=== PATIENT | female | born 1960 | race Caucasian/White ===

== ENCOUNTER 2022-03-05 11:49 | Inpatient (IN) ==
[2022-03-05] MEDS ORDERED: SODIUM CHLORIDE 0.9% 1000ML 1,000 ML IV STA (12:06)
[2022-03-05 12:21] LABS: Hematocrit (blood only) 48.4 % (34.1-44.9); Hemoglobin 16.3 g/dl (12.0-16.0); Mean Corpuscular Hemoglobin 29.8 pg (25.0-34.0); Mean Corpuscular Hgb Conc 33.7 g/dL (32.0-36.0); Mean Corpuscular Volume 88.5 fL (80.0-100.0); Mean Platelet Volume 11.9 fL (9.4-12.3); Platelet Count 141 K/uL (130-400); RDW Coefficient of Variation 14.3 % (11.5-14.5); RDW Standard Deviation 46.1 fL (36.4-46.3); Red Blood Count 5.47 M/uL (3.93-5.22); White Blood Count 8.48 K/ul (4.8-10.8)
[2022-03-05 12:44] LABS: Alanine Aminotransferase 43 U/L (7-52); Albumin Globulin Ratio 0.9 (0.9-2); Albumin Level 3.4 gm/dl (3.4-5.0); Alkaline Phosphatase 81 U/L (34-104); Anion Gap 10 (3-11); Aspartate Aminotransferase 38 U/L (13-39); BUN Creatinine Ratio 16.2 (10-20); Bilirubin,Total 0.6 mg/dl (0.2-1.0); Blood Urea Nitrogen 16 mg/dl (6-23); Calcium 8.6 mg/dl (8.5-10.1); Carbon Dioxide 26 mmol/L (21-32); Chloride 97 mmol/L (98-107); Est GFR (African American) 71.8 ml/min; Est GFR (Non-African American) 61.9 ml/min; Globulin 3.8 gm/dl (2.5-4.0); Glucose 120 mg/dl (70-99(Fasting)); Potassium 3.6 mmol/L (3.5-5.1); Sodium 133 mmol/L (136-145); Total Protein 7.2 gm/dl (6.0-8.3)
[2022-03-05 12:49] LABS: Troponin I High Sensitivity 17.6 pg/ml (0-14)
--- NOTE | 2022-03-05 12:54 | XRay Report ---
XR chest 1V portable CLINICAL HISTORY: Dysrhythmia. COMPARISON STUDY: No previous studies for comparison. TECHNIQUE: 1 view of the chest FINDINGS: Single frontal view of the chest demonstrates the cardiomediastinal silhouette to be within normal li mits. There is a decreased inspiratory effort with elevation of the hemidiaphragms and crowding of th e bronchovascular markings at the lung bases and centrally. Patchy alveolar density is also present a t the right cardiophrenic angle presence of an early infiltrate cannot be excluded on this limited st udy. Follow-up PA and lateral radiographs are recommended. There is blunting of left costophrenic angle in the presence of a small pleural effusion cannot be ex cluded. There is no evidence for vascular congestion. There is no acute osseous pathology. IMPRESSION: 1. Decreased inspiration with suspicion of an infiltrate at the right cardiophrenic angle. Follow-up PA and lateral radiographs are recommended to exclude the presence of pneumonia. 2. This also suspicion of small left pleural effusion. ACT 112: Negative or not required by law. Electronically signed by: Benny Clay M.D. 03/05/2022 12:53 PM
[2022-03-05 12:57] LABS: Thyroid Stimulating Hormone 4.971 uIu/ml (0.300-4.500)
[2022-03-05 13:16] LABS: Basophils # (auto) 0.08 K/uL (0-0.2); Basophils % (auto) 0.9 %; Eosinophils # (auto) 0.01 K/uL (0-0.50); Eosinophils % (auto) 0.1 %; Immature Granulocytes # (auto) 0.04 K/uL (0.00-0.02); Immature Granulocytes % (auto) 0.5 %; Lymphocytes # (auto) 3.14 K/uL (1.2-3.4); Monocytes # (auto) 0.57 K/uL (0.24-0.82); Monocytes % (auto) 6.7 %; Neutrophils # (auto) 4.64 K/uL (1.4-6.5); Neutrophils % (auto) 54.8 %; Polychromasia 1+
[2022-03-05 13:26] LABS: Lyme Ab IgG w/WB Rflx Negative (Negative)
[2022-03-05 13:30] LABS: Lyme Ab IgM w/WB Rflx Positive (Negative)
[2022-03-05 13:31] LABS: T4 Free Thyroxine 1.25 ng/dl (0.61-1.60)
[2022-03-05] MEDS ORDERED: DOXYCYCLINE HYCLATE 100 MG in DEXTROSE 5% 100 ML IV STA (13:31)
[2022-03-05] MEDS ORDERED: cefTRIAXone SODIUM 2,000 MG/70 ML BAG IV STA (13:31)
[2022-03-05 13:48] LABS: Adenovirus PCR Not Detected (NotDetected); Bordetella parapertussis PCR Not Detected (NotDetected); Bordetella pertussis PCR Not Detected (NotDetected); Chlamydia pneumoniae PCR Not Detected (NotDetected); Coronavirus 229E PCR Not Detected (NotDetected); Coronavirus CoV-2 (COVID19)PCR Not Detected (NotDetected); Coronavirus HKU1 PCR Not Detected (NotDetected); Coronavirus NL63 PCR Not Detected (NotDetected); Coronavirus OC43PCR Not Detected (NotDetected); Human Metapneumovirus PCR Not Detected (NotDetected); Influenza A PCR Not Detected (NotDetected); Influenza B PCR Not Detected (NotDetected); Mycoplasma pneumoniae PCR Not Detected (NotDetected); Parainfluenza Virus 1 PCR Not Detected (NotDetected); Parainfluenza Virus 2 PCR Not Detected (NotDetected); Parainfluenza Virus 3 PCR Not Detected (NotDetected); Parainfluenza Virus 4 PCR Not Detected (NotDetected); Respiratory Syncytial VirusPCR Not Detected (NotDetected); Rhinovirus/Enterovirus PCR Not Detected (NotDetected)
--- NOTE | 2022-03-05 13:57 | Electrocardiogram Report ---
Test Reason : Blood Pressure : / mmHG Vent. Rate : 102 BPM Atrial Rate : 102 BPM P-R Int : 134 ms QRS Dur : 076 ms QT Int : 342 ms P-R-T Axes : 029 -02 039 degrees QTc Int : 445 ms Sinus tachycardia with Premature atrial complexes Possible Left atrial enlargement Inferior infarct , age undetermined Poor R wave progression, consider anterior AR vs. lead placement vs. LVH Abnormal ECG No previous ECGs available Confirmed by Baldo Bloom ([id number]) on 03/05/2022 1:57:06 PM Referred By: REFERRED SELF Confirmed By:Baldo Bloom
[2022-03-05] MEDS ORDERED: SODIUM CHLORIDE 0.9% 1000ML 1,000 ML IV SCH (15:00)
--- NOTE | 2022-03-05 15:00 | History & Physical Report ---
Date of Service March 05, 2022 Assessment & Plan (1) Sepsis: (2) Acute hypotension: (3) Acute Lyme disease: (4) PNA (pneumonia): Plan: This is a 61-year-old female with PMH of hypertension, hyperlipidemia, GERD and other medical problems listed below who presents with palpitations. Patient has been feeling poorly for the past 4 days. Symptoms started evening when she felt faint and sweaty. By Sunday, she slept much of the day with a T-max of 104 F. Yesterday, she noticed some palpitations and dry cough. Today, patient felt weak upon waking and had to lie down before she use the bathroom. Riley that her heart was "beating out of her chest" and was brought by to ED for further evaluation. In triage, patient was found to be hypotensive at 70/40 and tachycardic in the 170s. Monitoring at that time look like narrow complex tachycardia that was irregular. By the time EKG was performed, rhythm converted to sinus tachycardia at 106 bpm with PACs. Was improved with IV fluids. Upon evaluation in situ, patient feels better with IV fluids but still weak with intermittent dry cough. Denies any chills, congestion, chest pain. Palpitations have resolved. No nausea, vomiting or abdominal pain. No appetite change. No dysuria, diarrhea or constipation. Denies any known tick bites or rash but does have dogs who sleep in her bed. (5) Tachycardia: (6) Elevated troponin: (7) Hypertension: (8) Hyperlipidemia: Plan: Continue statin DVT Ppx: SQ heparin Code status: FULL PCP: Dispo: Plan to return home once medically stable/ SW consulted to help with discharge placement... Patient seen in collaboration with . Please see addendum. History of Present Illness Chief Complaint: Weakness, malaise Primary Care Provider: Jessica Abdullahi DO This is a 61-year-old female with PMH of hypertension, hyperlipidemia, GERD and other medical problems listed below who presents with palpitations. Patient has been feeling poorly for the past 4 days. Symptoms started evening when she felt faint and sweaty. By Sunday, she slept much of the day with a T-max of 104 F. Yesterday, she noticed some palpitations and dry cough. Today, patient felt weak upon waking and had to lie down before she use the bathroom. Riley that her heart was "beating out of her chest" and was brought by to ED for further evaluation. In triage, patient was found to be hypotensive at 70/40 and tachycardic in the 170s. Monitoring at that time look like narrow complex tachycardia that was irregular. By the time EKG was performed, rhythm converted to sinus tachycardia at 106 bpm with PACs. Was improved with IV fluids. Upon evaluation in situ, patient feels better with IV fluids but still weak with intermittent dry cough. Denies any chills, congestion, chest pain. Palpitations have resolved. No nausea, vomiting or abdominal pain. No appetite change. No dysuria, diarrhea or constipation. Denies any known tick bites or rash but does have dogs who sleep in her bed. Allergies Allergy/AdvReac Type Severity Reaction Status Date / Time Penicillins Allergy Intermediate Hives Verified 03/05/22 16:55 Home Medications Medication Instructions Recorded Confirmed Type atorvastatin 20 mg tablet 20 mg PO DAILY 03/05/22 03/05/22 History hydrochlorothiazide 12.5 mg capsule 12.5 mg PO DAILY 03/05/22 03/05/22 History losartan 25 mg tablet 25 mg PO DAILY 03/05/22 03/05/22 History multivitamin 1 tab PO DAILY 03/05/22 03/05/22 History Past Med/Surg History Medical History (Updated 03/05/22 @ 17:49 by Shana Trevino PA-C) Hyperlipidemia Hypertension Surgical History (Updated 03/05/22 @ 15:33 by Shana Trevino PA-C) Amputation of toe Family History (Updated 03/05/22 @ 15:33 by Shana Trevino PA-C) Other Diabetes Heart disease Hypertension Social History Smoking Status: Never smoker Preferred Language: Lao marital status: current occupational status: employed Feels Safe at Home: Yes Review of Systems Review of Systems: At least ten systems reviewed and negative except as noted in the HPI. Physical Exam Physical Exam: General Appearance: WD/WN, vitals as above, NAD, sitting up in bed, pleasant, conversing easily Head: normocephalic, atraumatic Eyes: normal inspection, PERRL, conjunctivae normal, anicteric sclerae ENT: external ear and nose normal, oropharynx normal Neck: normal visual inspection, trachea midline, no thyromegaly Respiratory: decreased breath sounds bilaterally. No wheeze, rales, rhonchi. No accessory muscle use Cardiovascular: tachycardic rate, regular rhythm, no murmur, normal peripheral pulses, no BLE edema. Vessels: no JVD Chest: normal inspection of chest Abdomen/GI: normal bowel sounds, soft, nontender, no hepatosplenomegaly Extremities/Musculoskeletal: no cyanosis or clubbing, extremities motor strength 5/5 Neurologic: PERRL, EOMI, accommodation nl, no face palsy, no dysarthria, CN's II-XI intact bilaterally and moves all extremities Psychiatric: A+Ox3, euthymic affect Skin: no rashes, normal color, warm/dry Results & Data Results & Data ([facility]) Vital Signs (Past 12 Hours) Vital Signs Temp Pulse Pulse Resp BP BP Pulse Ox 03/05/22 14:27 94 H 20 114/69 92 03/05/22 12:30 111 H 25 H 101/74 98 03/05/22 12:19 107 H 17 112/71 95 03/05/22 12:18 96 H 28 H 108/72 95 03/05/22 12:10 123 H 19 93 03/05/22 12:08 105 H 24 96 03/05/22 12:15 98 03/05/22 12:00 70/50 L 03/05/22 11:55 35.9 C L 97 H 16 45/28 L 93 O2 Del Method 03/05/22 14:27 Room Air 03/05/22 12:30 Room Air 03/05/22 12:19 Room Air 03/05/22 12:18 Room Air 03/05/22 12:10 Room Air 03/05/22 12:08 Room Air 03/05/22 12:15 Room Air 03/05/22 12:00 03/05/22 11:55 Room Air Laboratory Results Short CBC 03/05/22 Range/Units 12:10 WBC 8.48 (4.8-10.8) K/ul Hgb 16.3 H (12.0-16.0) g/dl Hct 48.4 H (34.1-44.9) % Plt Count 141 (130-400) K/uL BMP 03/05/22 12:10 Sodium 133 L Potassium 3.6 Chloride 97 L Carbon Dioxide 26 BUN 16 Creatinine 0.99 Glucose 120 H Calcium 8.6 Liver Function 03/05/22 Range/Units 12:10 Total Bilirubin 0.6 (0.2-1.0) mg/dl AST 38 (13-39) U/L ALT 43 (7-52) U/L Alkaline Phosphatase 81 (34-104) U/L Albumin 3.4 (3.4-5.0) gm/dl Diagnostic Findings Chest X-Ray 03/05/22 12:06 XR chest 1V portable CLINICAL HISTORY: Dysrhythmia. COMPARISON STUDY: No previous studies for comparison. TECHNIQUE: 1 view of the chest FINDINGS: Single frontal view of the chest demonstrates the cardiomediastinal silhouette to be within normal limits. There is a decreased inspiratory effort with elevation of the hemidiaphragms and crowding of the bronchovascular markings at the lung bases and centrally. Patchy alveolar density is also present at the right cardiophrenic angle presence of an early infiltrate cannot be excluded on this limited study. Follow-up PA and lateral radiographs are recommended. There is blunting of left costophrenic angle in the presence of a small pleural effusion cannot be excluded. There is no evidence for vascular congestion. There is no acute osseous pathology. IMPRESSION: 1. Decreased inspiration with suspicion of an infiltrate at the right cardiophrenic angle. Follow-up PA and lateral radiographs are recommended to exclude the presence of pneumonia. 2. This also suspicion of small left pleural effusion. ACT 112: Negative or not required by law. Electronically signed by: Benny Clay M.D. 03/05/2022 12:53 PM ECG Additional Comments: Sinus tachycardia with PACs Code Status & VTE Plan VTE Prophylaxis Plan VTE Prophylaxis will be ordered: Yes Supervising Physician Co-Signing Physician Notes Attending Addendum: care coordinated with PROSPER Trevino please refer to her notes for full details, I agree with her notes patient seen and examined, records reviewed by myself as well on exam, patient seen sitting up in bed comfortable, not in distress no other symptoms VS noted and reviewed oriented x3, not in distress, speaks in sentences with no effort nor accessory muscle use normal rate, regular rhythm, no murmurs Mild crackles at the bases non distended, soft, nontender no bipedal edema, erythema, warmth no neuro deficits All labs noted and reviewed ASSESSMENT AND PLAN Bilateral lower lobe pneumonia Rule out COVID CT chest: Pending Repeat COVID test tomorrow, isolate for now Ceftriaxone plus doxycycline Atrial fibrillation RVR, resolved Check echo [employer] consulted Positive Lyme screen Follow-up Western blot test On ceftriaxone plus doxycycline for pneumonia other diagnoses and plan of care as per PROSPER Trevino's notes Chicho Rose MD
--- NOTE | 2022-03-05 15:24 | Emergency Department Note ---
Impression & Plan Acute hypotension, Tachycardia, Elevated troponin, Acute Lyme disease ED Provider Note INFORMANT: Patient and significant other ED PROVIDER(S): Lavon Bhatia MD CHIEF COMPLAINT: Palpitations PLAN: Disposition: Admitted Condition: Good Outpatient prescription management: none Referral: None MEDICAL DECISION MAKING: Patient presented to emergency department because of palpitations. She was found to be significantly hypertensive and tachycardic in triage. Her monitoring looked like a narrow complex tachycardia but it was irregular. Unfortunately when an ECG was performed the patient had already started to slow down. Her ECG showed a sinus tachycardia with PACs. This slowing occurred at the time of IV placement. Her blood pressure improved when her heart rate slowed. She was hydrated. Work-up was initiated. The patient was found to have a negative white blood cell count. Her troponin was mildly positive as well as her procalcitonin and Lyme titer. Additional tickborne labs ordered. The patient was given IV Rocephin and IV doxycycline. Radiology questioned po ssible infiltrate in the right however the patient does not have significant pulmonary symptoms. On reassessment she was doing better given the improvement in the heart rate and blood pressure. Further management in the hospital will be necessary given the cardiac findings and likely acute Lyme disease. Patient and were in agreement. [facility] Patient was evaluated in the ER and admitted for further management. Triage Nursing notes reviewed and agree them. Vital Signs: reviewed and remarkable for hypotension and tachycardia Differential diagnosis: Dysrhythmia, ACS, viral syndrome, otitis, pharyngitis, pneumonia, influenza, meningitis, urinary tract infection, sepsis, bacteremia, as well as other pathologies. Diagnostics interpreted by me: ECG: Twelve-lead ECG reveals sinus tachycardia with PACs at 119 bpm. Inferior Q-wave present. Anterior Q wave present. No ST elevation. Normal axis. Cardiac Monitoring: Cardiac monitoring ordered by me: The patient was placed on continuous cardiac monitoring and observed. It revealed significant narrow complex tachycardia with irregularity at 171 bpm. Imaging studies: Chest x-ray as noted below. I refer you to the EMR for further details. HPI: The patient is a 61year old female who presents to the Emergency Room with complaints of palpitations. This started over the last day or 2 and is worse today. The patient also notes the following associated symptoms, intermittent fevers, URI symptoms 2 weeks ago, lightheadedness and generalized weakness. The patient has found no relieving factors. Current pain is rated as 0/10. When patient arrived in triage she was very hypotensive and tachycardic. Pt denies LOC, headache, diaphoresis, visual changes, neck pain, chest pain, breathing difficulties, nausea, vomiting, abdominal pain, back pain, melena, hematochezia, urinary symptoms, numbness, lymphadenopathy, rash, or other complaints. ROS: See above HPI for pertinent positives & negatives. A total of 10 systems reviewed and were otherwise negative. PAST MEDICAL HISTORY:See Below , hypertension PAST SURGICAL HISTORY:See Below, FAMILY HISTORY:See Below SOCIAL HISTORY:See Below, HOME MEDICATIONS:See Below ALLERGIES:See Below VITALS:See Below PHYSICAL EXAMINATION: GENERAL: Awake, alert, mildly ill-appearing, in mild distress HENT: Normocephalic, atraumatic. Oropharynx unremarkable. EYES: Normal conjunctiva. Sclera non-icteric. NECK: Inspection normal. Non-tender. Supple. No nuchal rigidity. FROM. No mass es. RESPIRATORY: Clear to auscultation. No wheezes. No rales. Normal respiratory effort. CARDIAC: Very tachycardic rate. Normal rhythm. No murmurs. No rubs. Extremities warm and well perfused. Pulses equal. No JVD. GI: Soft, non-distended. No tenderness to palpation. No rebound or guarding. No masses. RECTAL: Deferred. MUSCULOSKELETAL: Atraumatic. Chest examination reveals no tenderness. The back is symmetrical on inspection without obvious abnormality. There is no CVA tenderness to palpation. No joint edema. LOWER EXTREMITIES: Calves are equal size bilaterally and non-tender. No edema. N o discoloration. NEURO: Normal sensorium. No sensory or motor deficits noted. SKIN: No rash or jaundice noted. CRITICAL CARE: I have personally spent greater than 35 minutes of critical care time in the direct management of this patient. This includes bedside care, interpretation of diagnostic studies, and testing, discussion with consultants, patient, and family members, and other required patient management activities. These minutes are in excess of all separately billable procedures. Lavon Bhatia MD Past Med/Surg History Medical History No significant past medical history Surgical History No significant past surgical history Social History (Updated 05/12/21 @ 00:43 by Patrick Contreras) Smoking Status: Never smoker Preferred Language: Wolof marital status: current occupational status: employed Feels Safe at Home: Yes Results & Data (ED) Vital Signs Vital Signs - 24 hr 03/05/22 11:55 03/05/22 12:00 03/05/22 12:15 Temperature 35.9 C L Temperature Source Temporal Artery Scan Pulse Rate 97 H Pulse Rate [Brachial] Respiratory Rate 16 Respiratory Effort / Characteristics Non-Labored Spontaneous Respiratory Depth Normal Respiratory Pattern Regular Blood Pressure 45/28 L Blood Pressure [Left Arm] 70/50 L Blood Pressure Mean 33 Blood Pressure Mean [Left Arm] 56 Blood Pressure Position Sitting Blood Pressure Position [Left Arm] Sitting Pulse Oximetry 93 98 Oxygen Delivery Method Room Air Room Air Sepsis Recent Fever Within 48 Hours Yes Sepsis New/Unexplained Change in Mental Status No Sepsis Action Taken by Nursing Physician Notified 03/05/22 12:08 03/05/22 12:10 03/05/22 12:18 Temperature Temperature Source Pulse Rate 105 H 123 H 96 H Pulse Rate [Brachial] Respiratory Rate 24 19 28 H Respiratory Effort / Characteristics Respiratory Depth Respiratory Pattern Blood Pressure 108/72 Blood Pressure [Left Arm] Blood Pressure Mean 84 Blood Pressure Mean [Left Arm] Blood Pressure Position Blood Pressure Position [Left Arm] Pulse Oximetry 96 93 95 Oxygen Delivery Method Room Air Room Air Room Air Sepsis Recent Fever Within 48 Hours Sepsis New/Unexplained Change in Mental Status Sepsis Action Taken by Nursing 03/05/22 12:19 03/05/22 12:30 03/05/22 14:27 Temperature Temperature Source Pulse Rate 107 H 111 H Pulse Rate [Brachial] 94 H Respiratory Rate 17 25 H 20 Respiratory Effort / Characteristics Non-Labored Spontaneous Respiratory Depth Normal Respiratory Pattern Regular Blood Pressure 112/71 101/74 Blood Pressure [Left Arm] 114/69 Blood Pressure Mean 84 83 Blood Pressure Mean [Left Arm] 84 Blood Pressure Position Blood Pressure Position [Left Arm] Sitting Pulse Oximetry 95 98 92 Oxygen Delivery Method Room Air Room Air Room Air Sepsis Recent Fever Within 48 Hours Sepsis New/Unexplained Change in Mental Status Sepsis Action Taken by Nursing Laboratory Data Result diagrams: 03/05/22 12:10 03/05/22 12:10 Lab Results 03/05/22 03/05/22 03/05/22 Range/Units 12:10 12:10 12:10 WBC 8.48 (4.8-10.8) K/ul RBC 5.47 H (3.93-5.22) M/uL Hgb 16.3 H (12.0-16.0) g/dl Hct 48.4 H (34.1-44.9) % MCV 88.5 (80.0-100.0) fL MCH 29.8 (25.0-34.0) pg MCHC 33.7 (32.0-36.0) g/dL RDW Std Deviation 46.1 (36.4-46.3) fL RDW Coeff of Pamela 14.3 (11.5-14.5) % Plt Count 141 (130-400) K/uL MPV 11.9 (9.4-12.3) fL Immature Gran % (Auto) 0.5 % Neut % (Auto) 54.8 % Lymph % (Auto) 37.0 % Screven % (Auto) 6.7 % Eos % (Auto) 0.1 % Baso % (Auto) 0.9 % Neut # (Auto) 4.64 (1.4-6.5) K/uL Lymph # (Auto) 3.14 (1.2-3.4) K/uL Screven # (Auto) 0.57 (0.24-0.82) K/uL Eos # (Auto) 0.01 (0-0.50) K/uL Baso # (Auto) 0.08 (0-0.2) K/uL Immature Gran # (Auto) 0.04 H (0.00-0.02) K/uL Polychromasia 1+ PT 11.0 (9.0-12.0) Seconds INR 1.0 (0.9-1.1) Sodium 133 L (136-145) mmol/L Potassium 3.6 (3.5-5.1) mmol/L Chloride 97 L (98-107) mmol/L Carbon Dioxide 26 (21-32) mmol/L Anion Gap 10 (3-11) BUN 16 (6-23) mg/dl Creatinine 0.99 (0.6-1.2) mg/dl Est Cr Clr Drug Dosing Not Reportable Est GFR ( Amer) 71.8 ml/min Est GFR (Non-Af Amer) 61.9 ml/min BUN/Creatinine Ratio 16.2 (10-20) Glucose 120 H (70-99(Fasting)) mg/dl Calcium 8.6 (8.5-10.1) mg/dl Magnesium 2.0 (1.7-2.4) mg/dl Total Bilirubin 0.6 (0.2-1.0) mg/dl AST 38 (13-39) U/L ALT 43 (7-52) U/L Alkaline Phosphatase 81 (34-104) U/L Troponin I High Sens 17.6 H (0-14) pg/ml Total Protein 7.2 (6.0-8.3) gm/dl Albumin 3.4 (3.4-5.0) gm/dl Globulin 3.8 (2.5-4.0) gm/dl Albumin/Globulin Ratio 0.9 (0.9-2) Procalcitonin (0-0.5) ng/ml TSH (0.300-4.500) uIu/ml Free T4 (0.61-1.60) ng/dl Adenovirus (PCR) (NotDetected) B. pertussis DNA (PCR) (NotDetected) B.parapertussis DNA PCR (NotDetected) Lyme Disease IgG Ab (Negative) Lyme Disease IgM Ab (Negative) C. pneumoniae DNA (PCR) (NotDetected) Coronavirus OC43 (PCR) (NotDetected) Coronavirus HKU1 (PCR) (NotDetected) Coronavirus 229E (PCR) (NotDetected) SARS-CoV-2 (PCR) (NotDetected) Coronavirus NL63 (PCR) (NotDetected) Human Metapneumovir PCR (NotDetected) Influenza Type A (PCR) (NotDetected) Influenza Type B (PCR) (NotDetected) M. pneumoniae (PCR) (NotDetected) Parainfluenza 1 (PCR) (NotDetected) Parainfluenza 2 (PCR) (NotDetected) Parainfluenza 3 (PCR) (NotDetected) Parainfluenza 4 (PCR) (NotDetected) RSV (PCR) (NotDetected) Entero/Rhino (PCR) (NotDetected) 08/14/22 08/14/22 08/14/22 Range/Units 12:10 12:10 12:10 WBC (4.8-10.8) K/ul RBC (3.93-5.22) M/uL Hgb (12.0-16.0) g/dl Hct (34.1-44.9) % MCV (80.0-100.0) fL MCH (25.0-34.0) pg MCHC (32.0-36.0) g/dL RDW Std Deviation (36.4-46.3) fL RDW Coeff of Pamela (11.5-14.5) % Plt Count (130-400) K/uL MPV (9.4-12.3) fL Immature Gran % (Auto) % Neut % (Auto) % Lymph % (Auto) % Screven % (Auto) % Eos % (Auto) % Baso % (Auto) % Neut # (Auto) (1.4-6.5) K/uL Lymph # (Auto) (1.2-3.4) K/uL Screven # (Auto) (0.24-0.82) K/uL Eos # (Auto) (0-0.50) K/uL Baso # (Auto) (0-0.2) K/uL Immature Gran # (Auto) (0.00-0.02) K/uL Polychromasia PT (9.0-12.0) Seconds INR (0.9-1.1) Sodium (136-145) mmol/L Potassium (3.5-5.1) mmol/L Chloride (98-107) mmol/L Carbon Dioxide (21-32) mmol/L Anion Gap (3-11) BUN (6-23) mg/dl Creatinine (0.6-1.2) mg/dl Est Cr Clr Drug Dosing Est GFR ( Amer) ml/min Est GFR (Non-Af Amer) ml/min BUN/Creatinine Ratio (10-20) Glucose (70-99(Fasting)) mg/dl Calcium (8.5-10.1) mg/dl Magnesium (1.7-2.4) mg/dl Total Bilirubin (0.2-1.0) mg/dl AST (13-39) U/L ALT (7-52) U/L Alkaline Phosphatase (34-104) U/L Troponin I High Sens (0-14) pg/ml Total Protein (6.0-8.3) gm/dl Albumin (3.4-5.0) gm/dl Globulin (2.5-4.0) gm/dl Albumin/Globulin Ratio (0.9-2) Procalcitonin 0.61 H (0-0.5) ng/ml TSH 4.971 H (0.300-4.500) uIu/ml Free T4 1.25 (0.61-1.60) ng/dl Adenovirus (PCR) (NotDetected) B. pertussis DNA (PCR) (NotDetected) B.parapertussis DNA PCR (NotDetected) Lyme Disease IgG Ab Negative (Negative) Lyme Disease IgM Ab Positive A (Negative) C. pneumoniae DNA (PCR) (NotDetected) Coronavirus OC43 (PCR) (NotDetected) Coronavirus HKU1 (PCR) (NotDetected) Coronavirus 229E (PCR) (NotDetected) SARS-CoV-2 (PCR) (NotDetected) Coronavirus NL63 (PCR) (NotDetected) Human Metapneumovir PCR (NotDetected) Influenza Type A (PCR) (NotDetected) Influenza Type B (PCR) (NotDetected) M. pneumoniae (PCR) (NotDetected) Parainfluenza 1 (PCR) (NotDetected) Parainfluenza 2 (PCR) (NotDetected) Parainfluenza 3 (PCR) (NotDetected) Parainfluenza 4 (PCR) (NotDetected) RSV (PCR) (NotDetected) Entero/Rhino (PCR) (NotDetected) 03/05/22 Range/Units 12:30 WBC (4.8-10.8) K/ul RBC (3.93-5.22) M/uL Hgb (12.0-16.0) g/dl Hct (34.1-44.9) % MCV (80.0-100.0) fL MCH (25.0-34.0) pg MCHC (32.0-36.0) g/dL RDW Std Deviation (36.4-46.3) fL RDW Coeff of Pamela (11.5-14.5) % Plt Count (130-400) K/uL MPV (9.4-12.3) fL Immature Gran % (Auto) % Neut % (Auto) % Lymph % (Auto) % Screven % (Auto) % Eos % (Auto) % Baso % (Auto) % Neut # (Auto) (1.4-6.5) K/uL Lymph # (Auto) (1.2-3.4) K/uL Screven # (Auto) (0.24-0.82) K/uL Eos # (Auto) (0-0.50) K/uL Baso # (Auto) (0-0.2) K/uL Immature Gran # (Auto) (0.00-0.02) K/uL Polychromasia PT (9.0-12.0) Seconds INR (0.9-1.1) Sodium (136-145) mmol/L Potassium (3.5-5.1) mmol/L Chloride (98-107) mmol/L Carbon Dioxide (21-32) mmol/L Anion Gap (3-11) BUN (6-23) mg/dl Creatinine (0.6-1.2) mg/dl Est Cr Clr Drug Dosing Est GFR ( Amer) ml/min Est GFR (Non-Af Amer) ml/min BUN/Creatinine Ratio (10-20) Glucose (70-99(Fasting)) mg/dl Calcium (8.5-10.1) mg/dl Magnesium (1.7-2.4) mg/dl Total Bilirubin (0.2-1.0) mg/dl AST (13-39) U/L ALT (7-52) U/L Alkaline Phosphatase (34-104) U/L Troponin I High Sens (0-14) pg/ml Total Protein (6.0-8.3) gm/dl Albumin (3.4-5.0) gm/dl Globulin (2.5-4.0) gm/dl Albumin/Globulin Ratio (0.9-2) Procalcitonin (0-0.5) ng/ml TSH (0.300-4.500) uIu/ml Free T4 (0.61-1.60) ng/dl Adenovirus (PCR) Not Detected (NotDetected) B. pertussis DNA (PCR) Not Detected (NotDetected) B.parapertussis DNA PCR Not Detected (NotDetected) Lyme Disease IgG Ab (Negative) Lyme Disease IgM Ab (Negative) C. pneumoniae DNA (PCR) Not Detected (NotDetected) Coronavirus OC43 (PCR) Not Detected (NotDetected) Coronavirus HKU1 (PCR) Not Detected (NotDetected) Coronavirus 229E (PCR) Not Detected (NotDetected) SARS-CoV-2 (PCR) Not Detected (NotDetected) Coronavirus NL63 (PCR) Not Detected (NotDetected) Human Metapneumovir PCR Not Detected (NotDetected) Influenza Type A (PCR) Not Detected (NotDetected) Influenza Type B (PCR) Not Detected (NotDetected) M. pneumoniae (PCR) Not Detected (NotDetected) Parainfluenza 1 (PCR) Not Detected (NotDetected) Parainfluenza 2 (PCR) Not Detected (NotDetected) Parainfluenza 3 (PCR) Not Detected (NotDetected) Parainfluenza 4 (PCR) Not Detected (NotDetected) RSV (PCR) Not Detected (NotDetected) Entero/Rhino (PCR) Not Detected (NotDetected) Administered Medications Discontinued Medications Sodium Chloride (Nss 1000ml) 1,000 mls @ 999 mls/hr IV .[id number] STA Stop: 03/05/22 13:06 Last Infusion: 03/05/22 13:10 Dose: 0 mls/hr Documented By: Admin: 03/05/22 12:05 Dose: 999 mls/hr Documented By: TAYLOR Ceftriaxone Sodium (Rocephin) 2,000 mg in 70 mls @ 140 mls/hr IV NOW STA Stop: 03/05/22 14:00 Last Infusion: 03/05/22 14:55 Dose: 0 mls/hr Documented By: Admin: 03/05/22 14:24 Dose: 140 mls/hr Documented By: MADISYN Imaging Data Radiologist's Impression: Chest X-Ray 03/05/22 12:06 XR chest 1V portable CLINICAL HISTORY: Dysrhythmia. COMPARISON STUDY: No previous studies for comparison. TECHNIQUE: 1 view of the chest FINDINGS: Single frontal view of the chest demonstrates the cardiomediastinal silhouette to be within normal limits. There is a decreased inspiratory effort with elevation of the hemidiaphragms and crowding of the bronchovascular markings at the lung bases and centrally. Patchy alveolar density is also present at the right cardiophrenic angle presence of an early infiltrate cannot be excluded on this limited study. Follow-up PA and lateral radiographs are recommended. There is blunting of left costophrenic angle in the presence of a small pleural effusion cannot be excluded. There is no evidence for vascular congestion. There is no acute osseous pathology. IMPRESSION: 1. Decreased inspiration with suspicion of an infiltrate at the right cardiophrenic angle. Follow-up PA and lateral radiographs are recommended to exclude the presence of pneumonia. 2. This also suspicion of small left pleural effusion. ACT 112: Negative or not required by law. Electronically signed by: Benny Clay M.D. 03/05/2022 12:53 PM Discharge Plan Visit Data Chief Complaint: Cardiac Assessment Stated Complaint: CARDIAC ASSESSMENT, DIZZY, LIGHTHEADED ED Provider: Lavon Bhatia Discharge Problem: Acute hypotension, Tachycardia, Elevated troponin, Acute Lyme disease Forms Stand Alone Forms: [facility] Referrals Referrals: Jessica Abdullahi DO [Primary Care Provider] -
[2022-03-05] MEDS: Patient's ALLERGY Info needs ENTERED SCH (17:00)
[2022-03-05] MEDS ORDERED: ACETAMINOPHEN 325 MG TAB ONE (18:53)
--- NOTE | 2022-03-05 19:22 | CT Scan Report ---
CT chest diagnostic wo con CLINICAL HISTORY: Evaluate for possible right lower lobe pneumonia COMPARISON STUDY: Portable chest from 03/05/2022 CT DOSE: 222.98 mGy.cm TECHNIQUE: Standard CT of the Chest was performed without IV contrast. A dose lowering technique was utilized adhering to the principles of ALARA. FINDINGS: Airway: The airway is clear. No endobronchial lesion is identified. Lungs and pleural: There are small to moderate size bilateral pleural effusions present which were mo st likely in the posterior gutter on the portable chest radiograph. There is mild right basilar atele ctasis accounting for the density seen on the chest radiograph. The lungs are otherwise clear of acut e alveolar opacities, air bronchograms or pulmonary nodules. No groundglass opacities are seen. Mediastinum: There is no evidence for pathologic adenopathy on these limited noncontrast images. The heart size is within normal limits. There is mild coronary artery calcification. The thoracic aorta i s within normal limits. There is no evidence for pericardial effusion. Upper abdomen: The adrenal glands are normal bilaterally. Osseous structures: There is no acute osseous pathology. IMPRESSION: 1. Small to moderate sized bilateral pleural effusions and right basilar atelectasis accounting for t he density seen on the chest radiograph. 2. No confluent alveolar opacities are identified. ACT 112: Negative or not required by law. Electronically signed by: Benny Clay M.D. 03/05/2022 7:21 PM
[2022-03-05] MEDS ORDERED: ONDANSETRON INJ 2 MG/ML 2 ML VIAL IV PRN (19:38)
[2022-03-05] MEDS ORDERED: ACETAMINOPHEN 325 MG TAB PO PRN (19:38)
[2022-03-05] MEDS ORDERED: POLYETHYLENE (MIRALAX) 17 GM PACK PO PRN (19:38)
[2022-03-05] MEDS ORDERED: BENZONATATE 100 MG CAPSULE PO PRN (19:38)
[2022-03-05] MEDS: guaiFENesin 600 MG TABCR PO SCH (21:09)
[2022-03-05] MEDS: HEPARIN SOD 5,000 UNIT/0.5 ML VIAL SQ SCH (21:09)
[2022-03-06] MEDS ORDERED: ALBUMIN 25% 100 mL 25 GM/100 ML VIAL IV ONE (00:18)
--- NOTE | 2022-03-06 00:19 | Communication Note ---
Date of Service: March 06, 2022 Made aware by RN of worsening lactic acidosis. 2.4 (from 2.1) Add Doxycycline to ceftriaxone for atypical organism coverage
[2022-03-06] MEDS: HEPARIN SOD 5,000 UNIT/0.5 ML VIAL SQ SCH ×3 (05:24→20:38)
[2022-03-06 07:26] LABS: Hematocrit (blood only) 35.8 % (34.1-44.9); Hemoglobin 12.1 g/dl (12.0-16.0); Mean Corpuscular Hemoglobin 29.7 pg (25.0-34.0); Mean Corpuscular Hgb Conc 33.8 g/dL (32.0-36.0); Mean Platelet Volume 11.9 fL (9.4-12.3); Platelet Count 147 K/uL (130-400); RDW Coefficient of Variation 14.3 % (11.5-14.5); RDW Standard Deviation 45.6 fL (36.4-46.3); Red Blood Count 4.07 M/uL (3.93-5.22); White Blood Count 8.76 K/ul (4.8-10.8)
[2022-03-06 07:28] LABS: BUN Creatinine Ratio 22.4 (10-20); Calcium 7.6 mg/dl (8.5-10.1); Creatinine Clr Calc Pharmacy 83.6 ml/min; Est GFR (African American) 110.7 ml/min; Est GFR (Non-African American) 95.5 ml/min; Potassium 3.6 mmol/L (3.5-5.1)
--- NOTE | 2022-03-06 08:08 | XRay Report ---
XR chest 1V portable HISTORY: 61 years-old Female low o2 acute hypoxia COMPARISON: Chest CT of same day TECHNIQUE: Portable AP view of the chest FINDINGS: Cardiac silhouette is enlarged. Pulmonary vascular congestion with reticular interstitial opacities a nd mid to lower lung zone predominant airspace densities. Layering pleural effusions. No pneumothorax . Degenerative changes of the shoulders and spine. IMPRESSION: 1. Cardiomegaly with pulmonary edema. 2. Layering pleural effusions with bibasilar opacities suggestive of atelectasis versus pneumonitis. ACT 112: Negative or not required by law. The above report was generated using voice recognition software. It may contain grammatical, syntax o r spelling errors. Electronically signed by: Vinay Raymond M.D. 03/06/2022 8:07 AM
[2022-03-06] MEDS: MULTIVITAMIN TAB PO SCH (09:16)
[2022-03-06] MEDS: ATORVASTATIN 20 MG TAB PO SCH (09:16)
[2022-03-06] MEDS: cefTRIAXone SODIUM 1,000 MG in DEXTROSE 5% 50 ML IV SCH (09:16)
[2022-03-06] MEDS: DOXYCYCLINE HYCLATE 100 MG CAP PO SCH ×2 (09:16→20:37)
[2022-03-06] MEDS: guaiFENesin 600 MG TABCR PO SCH ×2 (09:16→20:37)
--- NOTE | 2022-03-06 09:21 | Cardiology Consultation ---
Date of Consultation March 06, 2022 Assessment & Plan (1) SVT (supraventricular tachycardia): (2) Sepsis: (3) PNA (pneumonia): (4) Acute Lyme disease: Plan Patient admitted after 4 days of febrile illness, weakness, hypotension, likely sepsis. She had run of non sustained SVT on arrival to ER. No recurrence. started on IV fluids. labs consistent with underlying sepsis. Blood cultures pending. Initial lyme titer +. Started on antibiotics. Symptoms improving. No recurrent arrhythmias. SVT likely due to acute viral illness. Echo pending at time of evaluation this morning. She has b/l pleural effusions on chest CT, possible pneumonia. She does not examine as volume overloaded. Given hypotension and sepsis, would not give diuretics at this time. Monitor respiratory status. Case discussed with Dr. Alonso. Await echo results. Await final lyme titers and other viral panels. Repeat COVID testl pending as well Supervising Physician Co-Signing Physician Notes 61-year-old female mated with sepsis. Brief episode of PSVT recorded while on telemetry in the ER. No recurrence. Patient reports occasional palpitations prior to admission. Fevers up to 104 degrees recorded at home. COVID testing negative. Possible Lyme's disease. PE: VSS. Gen: NAD, AAO x 3. Heart: Regular rhythm, normal S1-S2. No murmur. Lungs: Diminished lung sounds at the bases bilateral. No wheezing. Ext remities: No edema. A/P: Agree with above PA-C history, physical exam, assessment and plan. Continue telemetry monitoring. Resting 2D transthoracic echocardiogram demonstrates preserved LV systolic function without regional wall motion abnormality. Treatment of sepsis per internal medicine. History of Present Illness Reason for Consultation: Narrow complex tachycardia; Sepsis Requesting Physician: Dr. Stewart Attending Physician: Dr. Alonso History of Present Illness Patient is a 61 year old female who presented to [facility] yesterday with weakness, dizziness, and febrile illness x4 days. Symptoms began last . Noted lack of appetite, fever of up to 104, chills, aches. Intermittent cough also reported. No ill contacts. Sunday her symptoms worsened and she could barely make it from her bed the bathroom without weakness, dizziness, and she noted worsening SOB and palpitations. Came to the ER. On arrival in triage, VS demonstrated tachycardia with hypotension. BP 70/40's. HR" in the 170's. Telemetry strip reviewed and demonstrated paroxysmal SVT. EKG was obtained but patient had converted to NSR. SHe was started on IV fluids. Blood cultures ordered. Started on broad spectrum antibiotics. Possible pneumonia. Initial COVID was negative, but repeat test is pending at time of consult. Initial lyme titer also positive with WB pending. She denies history of cardiac issues. She takes meds for hypertension and dyslipidemia as an outpatient. at time of consult, she is resting in bed comfortably. Notes ongoing weakness but improving from yesterday. ongoing cough and intermittent chills also noted. No chest pain. no recurrent palpitations. Telemetry has been NSR wihtout recurrent arrhythmias. Allergies Allergy/AdvReac Type Severity Reaction Status Date / Time Penicillins Allergy Intermediate Hives Verified 03/05/22 16:55 Home Medications Medication Instructions Recorded Confirmed Type atorvastatin 20 mg tablet 20 mg PO DAILY 03/05/22 03/05/22 History hydrochlorothiazide 12.5 mg capsule 12.5 mg PO DAILY 03/05/22 03/05/22 History losartan 25 mg tablet 25 mg PO DAILY 03/05/22 03/05/22 History multivitamin 1 tab PO DAILY 03/05/22 03/05/22 History benzonatate 100 mg capsule 100 mg PO TID PRN cough 5 days #15 03/07/22 Rx caps cefdinir 300 mg capsule 300 mg PO BID 5 days #10 caps 03/07/22 Rx doxycycline hyclate 100 mg capsule 100 mg PO BID 10 days #20 caps 03/07/22 Rx guaifenesin 600 mg tablet, 600 mg PO Q12 5 days #10 tabs 03/07/22 Rx extended release 12 hr (Mucinex) lactobacillus combination no.4 3 3,000 mmu cells PO DAILY 10 days 03/07/22 Rx billion cell capsule (Probiotic) #10 caps Patient History Medical History (Updated 03/06/22 @ 14:05 by Shannan Black PA-C) Hyperlipidemia Hypertension Surgical History (Updated 03/05/22 @ 15:33 by Shana Trevino PA-C) Amputation of toe Family History (Updated 03/05/22 @ 15:33 by Shana Trevino PA-C) Other Diabetes Heart disease Hypertension Social History Smoking Status: Never smoker Hx Alcohol Use: Yes Alcohol type: wine Hx Substance Use: No Preferred Language: Mexican Communication Ability: Effective Recycle Coordinator Required: No Beliefs That Will Affect Care: None marital status: Current Living Situation: Spouse current occupational status: employed Other Information That Helps Us Care for You: No Feels Safe at Home: Yes Safety Concerns: Feels Safe At This Time Assistive Devices: None Review of Systems Review of Systems: All systems reviewed & are unremarkable except as noted in HPI & below Physical Exam Constitutional: WD/WN, vitals as above Neck: trachea midline, no thyromegaly Respiratory: normal respiratory effort Auscultation: + rhonchi Cardiovascular: RRR, no murmur, no edema Gastrointestinal (Abdomen): normal bowel sounds, soft, nontender, no hepat osplenomegaly Skin: no rashes, warm and dry Neurologic: PERRL, EOMI, accommodation nl, no face palsy, no dysarthria Results & Data ([facility]) Vital Signs (Past 12 Hours) Vital Signs Temp Pulse Pulse Pulse Resp BP Pulse Ox 03/06/22 08:14 36.9 C 89 16 120/78 94 03/06/22 07:17 74 03/06/22 05:25 85 18 129/76 94 03/06/22 03:10 36.7 C 86 18 122/75 94 03/06/22 03:22 03/05/22 23:00 96 H 03/05/22 23:51 36.8 C 97 H 18 104/67 94 O2 Del Method O2 Flow Rate 03/06/22 08:14 Nasal Cannula 3 03/06/22 07:17 03/06/22 05:25 Nasal Cannula 4 03/06/22 03:10 Nasal Cannula 2 03/06/22 03:22 Nasal Cannula 2 03/05/22 23:00 03/05/22 23:51 Nasal Cannula 3 Laboratory Results Cardiac Enzymes 03/05/22 Range/Units 15:38 Troponin I High Sens 14.7 H (0-14) pg/ml CBC 03/06/22 Range/Units 06:37 WBC 8.76 (4.8-10.8) K/ul RBC 4.07 (3.93-5.22) M/uL Hgb 12.1 D (12.0-16.0) g/dl Hct 35.8 (34.1-44.9) % Plt Count 147 (130-400) K/uL Comprehensive Metabolic Panel 03/06/22 Range/Units 06:37 Sodium 136 (136-145) mmol/L Potassium 3.6 (3.5-5.1) mmol/L Chloride 104 (98-107) mmol/L Carbon Dioxide 27 (21-32) mmol/L BUN 15 (6-23) mg/dl Creatinine 0.67 D (0.6-1.2) mg/dl Glucose 100 H (70-99(Fasting)) mg/dl Calcium 7.6 L (8.5-10.1) mg/dl Intake and Output 03/05/22 03/06/22 03/06/22 22:59 06:59 14:59 Intake Total 1098.75 / 2388.75 220 / 2388.75 60 / 60 Balance 1098.75 / 2388.75 220 / 2388.75 60 / 60 Intake: IV 978.75 / 2148.75 100 / 2148.75 60 / 60 ALBUMIN 25% 100 mL 25 gm In 100 100 / 100 ml @ 50 mls/hr IV ONE ONE Rx#: [id number] Doxycycline Hyclate 100 mg In 110 / 110 Dextrose 5% 100 ml @ 50 mls/hr IV NOW STA Rx#:[id number] Sodium Chloride 0.9% 1000ML 1, 868.75 / 868.75 000 ml @ 125 mls/hr IV .Q8H [facility] Rx#:[id number] cefTRIAXone SODIUM 1,000 mg In 60 / 60 Dextrose 5% 50 ml @ 100 mls/hr IV Q24H [facility] Rx#:[id number] Oral 120 / 240 120 / 240 Other: # Unmeasured Voids 1 Weight 70 kg 70.2 kg Weight Measurement Method Built in [facility] Diagnostic Findings Telemetry reviewed: NSR wiht occ atrial ectopy On admission rhythm appeared to be paroxysmal SVT rates in the 170's. No recurrence EKG this morning reviewed, 03/06: Normal sinus rhythm Low voltage QRS Borderline ECG When compared with ECG of 05-MAR-2022 12:09, Premature atrial complexes are no longer Present EKG on admission: Sinus tachycardia with Premature atrial complexes Left atrial enlargement Inferior infarct , age undetermined Poor R wave progression, consider anterior [place] vs. lead placement vs. LVH Abnormal ECG No previous ECGs available Laboratory Results WBC 8.76 K/ul (4.8-10.8) 03/06/22 06:37 RBC 4.07 M/uL (3.93-5.22) 03/06/22 06:37 Hgb 12.1 g/dl (12.0-16.0) D 03/06/22 06:37 Hct 35.8 % (34.1-44.9) 03/06/22 06:37 MCV 88.0 fL (80.0-100.0) 03/06/22 06:37 MCH 29.7 pg (25.0-34.0) 03/06/22 06:37 MCHC 33.8 g/dL (32.0-36.0) 03/06/22 06:37 RDW Std Deviation 45.6 fL (36.4-46.3) 03/06/22 06:37 RDW Coeff of Pamela 14.3 % (11.5-14.5) 03/06/22 06:37 Plt Count 147 K/uL (130-400) 03/06/22 06:37 MPV 11.9 fL (9.4-12.3) 03/06/22 06:37 Immature Gran % (Auto) 0.5 % 03/05/22 12:10 Neut % (Auto) 54.8 % 03/05/22 12:10 Lymph % (Auto) 37.0 % 03/05/22 12:10 [place] % (Auto) 6.7 % 03/05/22 12:10 Eos % (Auto) 0.1 % 03/05/22 12:10 Baso % (Auto) 0.9 % 03/05/22 12:10 Neut # (Auto) 4.64 K/uL (1.4-6.5) 03/05/22 12:10 Lymph # (Auto) 3.14 K/uL (1.2-3.4) 03/05/22 12:10 [place] # (Auto) 0.57 K/uL (0.24-0.82) 03/05/22 12:10 Eos # (Auto) 0.01 K/uL (0-0.50) 03/05/22 12:10 Baso # (Auto) 0.08 K/uL (0-0.2) 03/05/22 12:10 Immature Gran # (Auto) 0.04 K/uL (0.00-0.02) H 03/05/22 12:10 Polychromasia 1+ 03/05/22 12:10 PT 11.0 Seconds (9.0-12.0) 03/05/22 12:10 INR 1.0 (0.9-1.1) 03/05/22 12:10 Sodium 136 mmol/L (136-145) 03/06/22 06:37 Potassium 3.6 mmol/L (3.5-5.1) 03/06/22 06:37 Chloride 104 mmol/L (98-107) 03/06/22 06:37 Carbon Dioxide 27 mmol/L (21-32) 03/06/22 06:37 Anion Gap 5 (3-11) 03/06/22 06:37 BUN 15 mg/dl (6-23) 03/06/22 06:37 Creatinine 0.67 mg/dl (0.6-1.2) D 03/06/22 06:37 Est Cr Clr Drug Dosing 83.6 ml/min 03/06/22 06:37 Est GFR ( Amer) 110.7 ml/min 03/06/22 06:37 Est GFR (Non-Af Amer) 95.5 ml/min 03/06/22 06:37 BUN/Creatinine Ratio 22.4 (10-20) H 03/06/22 06:37 Glucose 100 mg/dl (70-99(Fasting)) H 03/06/22 06:37 Lactate 1.1 mmol/L (0.4-2.0) 03/06/22 06:44 Calcium 7.6 mg/dl (8.5-10.1) L 03/06/22 06:37 Magnesium 2.0 mg/dl (1.7-2.4) 03/05/22 12:10 Total Bilirubin 0.6 mg/dl (0.2-1.0) 03/05/22 12:10 AST 38 U/L (13-39) 03/05/22 12:10 ALT 43 U/L (7-52) 03/05/22 12:10 Alkaline Phosphatase 81 U/L (34-104) 03/05/22 12:10 Troponin I High Sens 14.7 pg/ml (0-14) H 03/05/22 15:38 Total Protein 7.2 gm/dl (6.0-8.3) 03/05/22 12:10 Albumin 3.4 gm/dl (3.4-5.0) 03/05/22 12:10 Globulin 3.8 gm/dl (2.5-4.0) 03/05/22 12:10 Albumin/Globulin Ratio 0.9 (0.9-2) 03/05/22 12:10 Procalcitonin 0.61 ng/ml (0-0.5) H 03/05/22 12:10 TSH 4.971 uIu/ml (0.300-4.500) H 03/05/22 12:10 Free T4 1.25 ng/dl (0.61-1.60) 03/05/22 12:10 Adenovirus (PCR) Not Detected (NotDetected) 03/05/22 12:30 Anaplasma Smear See Comment 03/05/22 12:10 Babesia Smear See Comment 03/05/22 12:10 B. pertussis DNA (PCR) Not Detected (NotDetected) 03/05/22 12:30 B.parapertussis DNA PCR Not Detected (NotDetected) 03/05/22 12:30 Lyme Disease IgG Ab Negative (Negative) 03/05/22 12:10 Lyme Disease IgM Ab Positive (Negative) A 03/05/22 12:10 C. pneumoniae DNA (PCR) Not Detected (NotDetected) 03/05/22 12:30 Coronavirus OC43 (PCR) Not Detected (NotDetected) 03/05/22 12:30 Coronavirus HKU1 (PCR) Not Detected (NotDetected) 03/05/22 12:30 Coronavirus 229E (PCR) Not Detected (NotDetected) 03/05/22 12:30 SARS-CoV-2 (PCR) NEGATIVE (Negative) 03/06/22 10:30 Coronavirus NL63 (PCR) Not Detected (NotDetected) 03/05/22 12:30 Human Metapneumovir PCR Not Detected (NotDetected) 03/05/22 12:30 Influenza Type A (PCR) Not Detected (NotDetected) 03/05/22 12:30 Influenza Type B (PCR) Not Detected (NotDetected) 03/05/22 12:30 M. pneumoniae (PCR) Not Detected (NotDetected) 03/05/22 12:30 Parainfluenza 1 (PCR) Not Detected (NotDetected) 03/05/22 12:30 Parainfluenza 2 (PCR) Not Detected (NotDetected) 03/05/22 12:30 Parainfluenza 3 (PCR) Not Detected (NotDetected) 03/05/22 12:30 Parainfluenza 4 (PCR) Not Detected (NotDetected) 03/05/22 12:30 RSV (PCR) Not Detected (NotDetected) 03/05/22 12:30 Entero/Rhino (PCR) Not Detected (NotDetected) 03/05/22 12:[address] 03/05/22 17:07 CT chest diagnostic wo con CLINICAL HISTORY: Evaluate for possible right lower lobe pneumonia COMPARISON STUDY: Portable chest from 03/05/2022 CT DOSE: 222.98 mGy.cm TECHNIQUE: Standard CT of the Chest was performed without IV contrast. A dose lowering technique was utilized adhering to the principles of ALARA. FINDINGS: Airway: The airway is clear. No endobronchial lesion is identified. Lungs and pleural: There are small to moderate size bilateral pleural effusions present which were most likely in the posterior gutter on the portable chest radiograph. There is mild right basilar atelectasis accounting for the density seen on the chest radiograph. The lungs are otherwise clear of acute alveolar opacities, air bronchograms or pulmonary nodules. No groundglass opacities are seen. Mediastinum: There is no evidence for pathologic adenopathy on these limited noncontrast images. The heart size is within normal limits. There is mild coronary artery calcification. The thoracic aorta is within normal limits. There is no evidence for pericardial effusion. Upper abdomen: The adrenal glands are normal bilaterally. Osseous structures: There is no acute osseous pathology. IMPRESSION: 1. Small to moderate sized bilateral pleural effusions and right basilar atelectasis accounting for the density seen on the chest radiograph. 2. No confluent alveolar opacities are identified. ACT 112: Negative or not required by law. Electronically signed by: Benny Clay M.D. 03/05/2022 7:21 PM Chest X-Ray 03/06/22 00:18 XR chest 1V portable HISTORY: 61 years-old Female low o2 acute hypoxia COMPARISON: Chest CT of same day TECHNIQUE: Portable AP view of the chest FINDINGS: Cardiac silhouette is enlarged. Pulmonary vascular congestion with reticular interstitial opacities and mid to lower lung zone predominant airspace densities. Layering pleural effusions. No pneumothorax. Degenerative changes of the shoulders and spine. IMPRESSION: 1. Cardiomegaly with pulmonary edema. 2. Layering pleural effusions with bibasilar opacities suggestive of atelectasis versus pneumonitis. ACT 112: Negative or not required by law. The above report was generated using voice recognition software. It may contain grammatical, syntax or spelling errors. Electronically signed by: Vinay Raymond M.D. 03/06/2022 8:07 AM Medications Administered Current Inpatient Medications Acetaminophen (Acetaminophen 325 Mg Tab) 650 mg PO Q4H PRN PRN Reason: Pain or Fever Stop: 04/04/22 19:37 Last Admin: 03/06/22 03:04 Dose: 650 mg Atorvastatin Calcium (Atorvastatin 20 Mg Tab) 20 mg PO DAILY TARYN Stop: 04/05/22 08:59 Last Admin: 03/06/22 09:16 Dose: 20 mg Benzonatate (Benzonatate 100 Mg Capsule) 100 mg PO TID PRN PRN Reason: cough Stop: 04/04/22 19:37 Doxycycline Hyclate (Doxycycline Hyclate 100 Mg Cap) 100 mg PO BID TARYN Stop: 03/13/22 08:59 Last Admin: 03/06/22 09:16 Dose: 100 mg Guaifenesin (Guaifenesin 600 Mg Tabcr) 1,200 mg PO Q12 TARYN Stop: 04/04/22 20:59 Last Admin: 03/06/22 09:16 Dose: 1,200 mg Heparin Sodium (Porcine) (Heparin Sod 5,000 Unit/0.5 Ml Vial) 5,000 units SQ Q8 TARYN Stop: 04/04/22 21:59 Last Admin: 03/06/22 05:24 Dose: 5,000 units Sodium Chloride (Nss 1000ml) 1,000 mls @ 125 mls/hr IV .Q8H TARYN Stop: 04/04/22 14:59 Last Infusion: 03/05/22 22:53 Dose: 0 mls/hr Ceftriaxone Sodium 1,000 mg/ (Dextrose) 60 mls @ 100 mls/hr IV Q24H TARYN; Protocol Stop: 03/12/22 08:59 Last Infusion: 03/06/22 10:13 Dose: Infused Multivitamins (Multivitamin Tab) 1 tab PO DAILY TARYN Stop: 04/05/22 08:59 Last Admin: 03/06/22 09:16 Dose: 1 tab Ondansetron HCl (Ondansetron Inj 2 Mg/Ml 2 Ml Vial) 4 mg IV Q6H PRN PRN Reason: Nausea Stop: 04/04/22 19:37 Polyethylene Glycol (Polyethylene (Miralax) 17 Gm Pack) 17 gm PO DAILY PRN PRN Reason: Constipation Stop: 04/04/22 19:37
--- NOTE | 2022-03-06 09:32 | Electrocardiogram Report ---
Test Reason : Blood Pressure : / mmHG Vent. Rate : 077 BPM Atrial Rate : 077 BPM P-R Int : 146 ms QRS Dur : 082 ms QT Int : 404 ms P-R-T Axes : 024 014 028 degrees QTc Int : 457 ms Normal sinus rhythm Low voltage QRS Borderline ECG When compared with ECG of 05-MAR-2022 12:09, Premature atrial complexes are no longer Present Confirmed by Baldo Bloom ([id number]) on 03/06/2022 9:32:14 AM Referred By: REFERRED SELF Confirmed By:Baldo Bloom
[2022-03-06] MEDS: Patient's ALLERGY Info needs ENTERED SCH (15:52)
[2022-03-06] MEDS ORDERED: POTASSIUM CHLORIDE CRTAB 20 MEQ TABCR PO STA (16:24)
--- NOTE | 2022-03-06 16:44 | Hospitalist Progress Note ---
Date of Service March 06, 2022 Assessment & Plan (1) Sepsis: Plan 61-year-old lady with PMH of HTN, HLD, GERD presented 03/05 to the ED with palpitation. Patient reports feeling sick since last 4 days with temperature [T-max of 104F]/sweating/weakness with minimal exertion/palpitation. In triage, patient was found to be hypotensive at 70/40 and tachycardic in the 170s, reported to be in irregular narrow complex tachycardia. By the time EKG was performed, rhythm converted to sinus tachycardia at 106 bpm with PACs. Patient reported improvement in symptoms with IV fluid resuscitation in the ED. Patient denied any known tick bites or rash but does have dogs to sleep in her bed. She is being managed for the following: Severe Sepsis POA: Elevated respiratory rate and pulse rate at presentation, temperature 35.9C at presentation. Likely Lyme disease versus atypical pneumonia. Likely Lyme disease Likely Atypical pneumonia Patient presented with feeling of generalized illness for 4 days associated with tachycardia and fever at presentation. Patient was found to be hypotensive. Patient with improvement in her symptoms with IV fluid resuscitation in the ED. Admitting CXR with suspicion of infiltrate at the right costophrenic angle and suspicion of small left pleural effusion. Admitting CT chest: Moderate sized bilateral pleural effusion and right basilar atelectasis. Follow-up CXR on next day of arrival with cardiomegaly with pulmonary edema and layering pleural effusion with bibasilar opacities suggestive of atelectasis versus pneumonitis Lyme titer positive pending confirmatory test, other serology either negative or pending, continue to follow. Respiratory biofire negative. Patient started on Rocephin and doxycycline 03/05. Patient has been afebrile, blood pressure and heart rate has improved, patient reports regaining her strength, patient reports some cough with mucus. Continue other supportive management. Follow admitting blood culture. Continue antibiotics. Tachycardia Reported narrow complex tachycardia on monitor in triage in 170s that converted to sinus tach by time of ECG Likely secondary to acute illness (see above) Continue to monitor on telemetry, 03/06 echo with EF of greater than 70% and mild concentric LVH. Troponin elevation HS troponin 17 --> 14 in setting of tachy-arrhythmia. No acute chest pain or ST elevation HTN Losartan and HCTZ held due to low blood pressure presentation, resume as able. HLD Continue statin DVT Ppx: SQ heparin Code status: FULL Dispo: PCU/tele Admission and Anticipated Discharge Date Admission Date: March 05, 2022 Subjective Patient seen and examined at bedside as a follow-up of acute hypotension, sinus tachycardia, likely Lyme disease, likely sepsis POA, minimal troponin elevation in the setting of tachyarrhythmia. Patient was lying in bed, on 2 L nasal cannula oxygen, NAD, denies any new acute events overnight. Patient reports eating okay and moving bowels okay. Patient denies any chest pain or palpitation or sore throat or belly pain or acute changes in bowel or bladder habit. Patient reports some cough with mucus. Cough is somewhat similar or slightly increased. Denies other review of symptoms. Physical Exam Physical Exam: GENERAL: Alert and oriented x3. NAD, on 2L NC O2. HEENT: No pallor, no icterus. Pupils equal, round and reactive to light. Oral mucosa moist. NECK: No JVD, no neck masses. HEART: S1 and S2 heard. Regular rate and rhythm. No murmur, no gallop. RESPIRATORY SYSTEM: Normal AP diameter. No accessory muscle use. No wheezing, no crackles. ABDOMEN: Soft, bowel sounds present, nontender, no distention. CENTRAL NERVOUS SYSTEM: No facial droop. Speech is clear. Obeys simple commands. Moves extremities. EXTREMITIES: No edema, no erythema seen. Results & Data Results & Data ([facility]) Vital Signs (Past 12 Hours) Vital Signs Temp Pulse Pulse Resp BP Pulse Ox O2 Del Method 03/06/22 15:23 86 03/06/22 10:15 Nasal Cannula 03/06/22 08:14 36.9 C 89 16 120/78 94 Nasal Cannula 03/06/22 07:17 74 03/06/22 05:25 85 18 129/76 94 Nasal Cannula O2 Flow Rate 03/06/22 15:23 03/06/22 10:15 5 03/06/22 08:14 3 03/06/22 07:17 03/06/22 05:25 4
[2022-03-07] MEDS: HEPARIN SOD 5,000 UNIT/0.5 ML VIAL SQ SCH (05:27)
[2022-03-07 07:40] LABS: Hemoglobin 11.5 g/dl (12.0-16.0); Mean Corpuscular Hemoglobin 29.9 pg (25.0-34.0); Mean Corpuscular Hgb Conc 32.9 g/dL (32.0-36.0); Mean Corpuscular Volume 90.9 fL (80.0-100.0); Mean Platelet Volume 11.2 fL (9.4-12.3); Platelet Count 227 K/uL (130-400); RDW Standard Deviation 49.9 fL (36.4-46.3); Red Blood Count 3.85 M/uL (3.93-5.22); White Blood Count 7.91 K/ul (4.8-10.8)
[2022-03-07 08:23] LABS: BUN Creatinine Ratio 20.6 (10-20); Creatinine Clr Calc Pharmacy 82.4 ml/min; Est GFR (African American) 110.2 ml/min; Est GFR (Non-African American) 95.1 ml/min; Magnesium 2.1 mg/dl (1.7-2.4); Phosphorus 2.6 mg/dl (2.5-4.9); Potassium 4.4 mmol/L (3.5-5.1)
--- NOTE | 2022-03-07 08:32 | Cardiology Progress Note ---
Date of Service March 07, 2022 Assessment & Plan (1) SVT (supraventricular tachycardia): (2) Sepsis: (3) PNA (pneumonia): (4) Acute Lyme disease: Plan Patient admitted after 4 days of febrile illness, weakness, hypotension. She had run of non sustained SVT on arrival to ER. No recurrence on telemetry. Converted spontaneously. Symptoms improving with IV fluids and antibiotics. labs consistent with underlying sepsis. Repeat COVID negative. Prelim blood cultures are negative. Initial lyme titer +. Started on doxy. WB pending Symptoms improving. No recurrent arrhythmias. SVT likely due to acute viral illness. Echo with preserved LVEF. No wall motion abnormalities. Antihypertensives remain on hold. Monitor BP. Continue antibiotic treatment per hospitalist. No further cardiac testing warranted at this time. Will sign off. 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 Case discussed with Dr. Alonso. Admission and Anticipated Discharge Date Admission Date: March 05, 2022 Supervising Physician Co-Signing Physician Notes 61-year-old female mated with sepsis. Brief episode of PSVT recorded while on telemetry in the ER. No recurrence. Feeling well today. No recurrent palpitations. PE: VSS. Gen: NAD, AAO x 3. Heart: Regular rhythm. Lungs: No audible wheeze. Extremities: No edema. A/P: Agree with above PA-C history, physical exam, assessment and plan. No medication changes recommended at this time. Treatment of sepsis and underlying Lyme disease as per internal medicine. Cardiology will sign off. Subjective Patient resting in bed comfortably. Reports feeling slightly better today, just tired and worn out. Cough with mild sputum production noted. No recurrent fevers or chills. No SOB. No Chest pain. No recurrent palpitations or tachypalpitations. No orthopnea, PND or edema. Review of Systems Review of Systems: All systems reviewed & are unremarkable except as noted in HPI & below Physical Exam Constitutional: WD/WN, vitals as above Neck: trachea midline, no thyromegaly Respiratory: normal respiratory effort and + cough Auscultation: lungs clear to auscultation bilaterally Cardiovascular: RRR, no murmur, no edema Gastrointestinal (Abdomen): normal bowel sounds, soft, nontender, no hepatosplenomegaly Skin: no rashes, warm and dry Neurologic: PERRL, EOMI, accommodation nl, no face palsy, no dysarthria Psychiatric: A+Ox3, euthymic affect Results & Data ([facility]) Vital Signs (Past 12 Hours) Vital Signs Temp Pulse Pulse Resp BP Pulse Ox O2 Del Method 03/07/22 07:25 75 03/07/22 04:08 36.7 C 83 16 117/74 94 Room Air 03/07/22 00:42 36.5 C 85 16 123/78 95 Nasal Cannula 03/06/22 23:28 101 H 03/06/22 21:36 Nasal Cannula O2 Flow Rate 03/07/22 07:25 03/07/22 04:08 03/07/22 00:42 03/06/22 23:28 03/06/22 21:36 3 Laboratory Results CBC 03/07/22 Range/Units 07:16 WBC 7.91 (4.8-10.8) K/ul RBC 3.85 L (3.93-5.22) M/uL Hgb 11.5 L (12.0-16.0) g/dl Hct 35.0 (34.1-44.9) % Plt Count 227 D (130-400) K/uL Comprehensive Metabolic Panel 03/07/22 Range/Units 07:16 Sodium 139 (136-145) mmol/L Potassium 4.4 D (3.5-5.1) mmol/L Chloride 107 (98-107) mmol/L Carbon Dioxide 27 (21-32) mmol/L BUN 14 (6-23) mg/dl Creatinine 0.68 (0.6-1.2) mg/dl Glucose 87 (70-99(Fasting)) mg/dl Calcium 8.0 L (8.5-10.1) mg/dl Intake and Output 03/06/22 03/07/22 03/07/22 22:59 06:59 14:59 Intake Total 251.25 / 981.25 120 / 981.25 Balance 251.25 / 979.25 120 / 979.25 Intake: IV 131.25 / 191.25 Sodium Chloride 0.9% 1000ML 1, 131.25 / 131.25 000 ml @ 125 mls/hr IV .Q8H TARYN Rx#:[id number] Oral 120 / 790 120 / 790 Other: # Unmeasured Voids 2 2 Weight 70.5 kg Weight Measurement Method Built in [facility] Diagnostic Findings Telemetry reviewed: NSR with occ PAC. No recurrent SVT Echo results reviewed from 03/06/22: LV is hyperdynamic EF > 70% Mild concentric LVH Mild TR Doppler findings do not suggest pulm hypertension Laboratory Results WBC 7.91 K/ul (4.8-10.8) 03/07/22 07:16 RBC 3.85 M/uL (3.93-5.22) L 03/07/22 07:16 Hgb 11.5 g/dl (12.0-16.0) L 03/07/22 07:16 Hct 35.0 % (34.1-44.9) 03/07/22 07:16 MCV 90.9 fL (80.0-100.0) 03/07/22 07:16 MCH 29.9 pg (25.0-34.0) 03/07/22 07:16 MCHC 32.9 g/dL (32.0-36.0) 03/07/22 07:16 RDW Std Deviation 49.9 fL (36.4-46.3) H 03/07/22 07:16 RDW Coeff of Pamela 15.0 % (11.5-14.5) H 03/07/22 07:16 Plt Count 227 K/uL (130-400) D 03/07/22 07:16 MPV 11.2 fL (9.4-12.3) 03/07/22 07:16 Immature Gran % (Auto) 0.5 % 03/05/22 12:10 Neut % (Auto) 54.8 % 03/05/22 12:10 Lymph % (Auto) 37.0 % 03/05/22 12:10 [place] % (Auto) 6.7 % 03/05/22 12:10 Eos % (Auto) 0.1 % 03/05/22 12:10 Baso % (Auto) 0.9 % 03/05/22 12:10 Neut # (Auto) 4.64 K/uL (1.4-6.5) 03/05/22 12:10 Lymph # (Auto) 3.14 K/uL (1.2-3.4) 03/05/22 12:10 [place] # (Auto) 0.57 K/uL (0.24-0.82) 03/05/22 12:10 Eos # (Auto) 0.01 K/uL (0-0.50) 03/05/22 12:10 Baso # (Auto) 0.08 K/uL (0-0.2) 03/05/22 12:10 Immature Gran # (Auto) 0.04 K/uL (0.00-0.02) H 03/05/22 12:10 Polychromasia 1+ 03/05/22 12:10 PT 11.0 Seconds (9.0-12.0) 03/05/22 12:10 INR 1.0 (0.9-1.1) 03/05/22 12:10 Sodium 139 mmol/L (136-145) 03/07/22 07:16 Potassium 4.4 mmol/L (3.5-5.1) D 03/07/22 07:16 Chloride 107 mmol/L (98-107) 03/07/22 07:16 Carbon Dioxide 27 mmol/L (21-32) 03/07/22 07:16 Anion Gap 5 (3-11) 03/07/22 07:16 BUN 14 mg/dl (6-23) 03/07/22 07:16 Creatinine 0.68 mg/dl (0.6-1.2) 03/07/22 07:16 Est Cr Clr Drug Dosing 82.4 ml/min 03/07/22 07:16 Est GFR ( Amer) 110.2 ml/min 03/07/22 07:16 Est GFR (Non-Af Amer) 95.1 ml/min 03/07/22 07:16 BUN/Creatinine Ratio 20.6 (10-20) H 03/07/22 07:16 Glucose 87 mg/dl (70-99(Fasting)) 03/07/22 07:16 Lactate 1.1 mmol/L (0.4-2.0) 03/06/22 06:44 Calcium 8.0 mg/dl (8.5-10.1) L 03/07/22 07:16 Phosphorus 2.6 mg/dl (2.5-4.9) 03/07/22 07:16 Magnesium 2.1 mg/dl (1.7-2.4) 03/07/22 07:16 Total Bilirubin 0.6 mg/dl (0.2-1.0) 03/05/22 12:10 AST 38 U/L (13-39) 03/05/22 12:10 ALT 43 U/L (7-52) 03/05/22 12:10 Alkaline Phosphatase 81 U/L (34-104) 03/05/22 12:10 Troponin I High Sens 14.7 pg/ml (0-14) H 03/05/22 15:38 Total Protein 7.2 gm/dl (6.0-8.3) 03/05/22 12:10 Albumin 3.4 gm/dl (3.4-5.0) 03/05/22 12:10 Globulin 3.8 gm/dl (2.5-4.0) 03/05/22 12:10 Albumin/Globulin Ratio 0.9 (0.9-2) 03/05/22 12:10 Procalcitonin 0.61 ng/ml (0-0.5) H 03/05/22 12:10 TSH 4.971 uIu/ml (0.300-4.500) H 03/05/22 12:10 Free T4 1.25 ng/dl (0.61-1.60) 03/05/22 12:10 Adenovirus (PCR) Not Detected (NotDetected) 03/05/22 12:30 Anaplasma Smear See Comment 03/05/22 12:10 Babesia Smear See Comment 03/05/22 12:10 B. pertussis DNA (PCR) Not Detected (NotDetected) 03/05/22 12:30 B.parapertussis DNA PCR Not Detected (NotDetected) 03/05/22 12:30 Lyme Disease IgG Ab Negative (Negative) 03/05/22 12:10 Lyme Disease IgM Ab Positive (Negative) A 03/05/22 12:10 C. pneumoniae DNA (PCR) Not Detected (NotDetected) 03/05/22 12:30 Coronavirus OC43 (PCR) Not Detected (NotDetected) 03/05/22 12:30 Coronavirus HKU1 (PCR) Not Detected (NotDetected) 03/05/22 12:30 Coronavirus 229E (PCR) Not Detected (NotDetected) 03/05/22 12:30 SARS-CoV-2 (PCR) NEGATIVE (Negative) 03/06/22 10:30 Coronavirus NL63 (PCR) Not Detected (NotDetected) 03/05/22 12:30 Human Metapneumovir PCR Not Detected (NotDetected) 03/05/22 12:30 Influenza Type A (PCR) Not Detected (NotDetected) 03/05/22 12:30 Influenza Type B (PCR) Not Detected (NotDetected) 03/05/22 12:30 M. pneumoniae (PCR) Not Detected (NotDetected) 03/05/22 12:30 Parainfluenza 1 (PCR) Not Detected (NotDetected) 03/05/22 12:30 Parainfluenza 2 (PCR) Not Detected (NotDetected) 03/05/22 12:30 Parainfluenza 3 (PCR) Not Detected (NotDetected) 03/05/22 12:30 Parainfluenza 4 (PCR) Not Detected (NotDetected) 03/05/22 12:30 RSV (PCR) Not Detected (NotDetected) 03/05/22 12:30 Entero/Rhino (PCR) Not Detected (NotDetected) 03/05/22 12:30 Medications Administered Current Inpatient Medications Acetaminophen (Acetaminophen 325 Mg Tab) 650 mg PO Q4H PRN PRN Reason: Pain or Fever Stop: 04/04/22 19:37 Last Admin: 03/06/22 03:04 Dose: 650 mg Atorvastatin Calcium (Atorvastatin 20 Mg Tab) 20 mg PO DAILY [facility] Stop: 04/05/22 08:59 Last Admin: 03/06/22 09:16 Dose: 20 mg Benzonatate (Benzonatate 100 Mg Capsule) 100 mg PO TID PRN PRN Reason: cough Stop: 04/04/22 19:37 Doxycycline Hyclate (Doxycycline Hyclate 100 Mg Cap) 100 mg PO BID [facility] Stop: 03/13/22 08:59 Last Admin: 03/06/22 20:37 Dose: 100 mg Guaifenesin (Guaifenesin 600 Mg Tabcr) 1,200 mg PO Q12 TARYN Stop: 04/04/22 20:59 Last Admin: 03/06/22 20:37 Dose: 1,200 mg Heparin Sodium (Porcine) (Heparin Sod 5,000 Unit/0.5 Ml Vial) 5,000 units SQ Q8 [facility] Stop: 04/04/22 21:59 Last Admin: 03/07/22 05:27 Dose: 5,000 units Sodium Chloride (Nss 1000ml) 1,000 mls @ 125 mls/hr IV .Q8H TARYN Stop: 04/04/22 14:59 Last Infusion: 03/06/22 21:27 Dose: Infused Ceftriaxone Sodium 1,000 mg/ (Dextrose) 60 mls @ 100 mls/hr IV Q24H TARYN; Protocol Stop: 03/12/22 08:59 Last Infusion: 03/06/22 10:13 Dose: Infused Multivitamins (Multivitamin Tab) 1 tab PO DAILY TARYN Stop: 04/05/22 08:59 Last Admin: 03/06/22 09:16 Dose: 1 tab Ondansetron HCl (Ondansetron Inj 2 Mg/Ml 2 Ml Vial) 4 mg IV Q6H PRN PRN Reason: Nausea Stop: 04/04/22 19:37 Polyethylene Glycol (Polyethylene (Miralax) 17 Gm Pack) 17 gm PO DAILY PRN PRN Reason: Constipation Stop: 04/04/22 19:37
[2022-03-07] MEDS: ATORVASTATIN 20 MG TAB PO SCH (09:42)
[2022-03-07] MEDS: cefTRIAXone SODIUM 1,000 MG in DEXTROSE 5% 50 ML IV SCH (09:43)
[2022-03-07] MEDS: DOXYCYCLINE HYCLATE 100 MG CAP PO SCH (09:43)
[2022-03-07] MEDS: guaiFENesin 600 MG TABCR PO SCH (09:44)
[2022-03-07] MEDS: MULTIVITAMIN TAB PO SCH (09:44)
--- NOTE | 2022-03-07 11:50 | Discharge Summary ---
Date of Service March 07, 2022 Admission HPI Per Admitting Provider This is a 61-year-old female with PMH of hypertension, hyperlipidemia, GERD and other medical problems listed below who presents with palpitations. Patient has been feeling poorly for the past 4 days. Symptoms started evening when she felt faint and sweaty. By Sunday, she slept much of the day with a T-max of 104 F. Yesterday, she noticed some palpitations and dry cough. Today, patient felt weak upon waking and had to lie down before she use the bathroom. [place] that her heart was "beating out of her chest" and was brought by to ED for further evaluation. In triage, patient was found to be hypotensive at 70/40 and tachycardic in the 170s. Monitoring at that time look like narrow complex tachycardia that was irregular. By the time EKG was performed, rhythm converted to sinus tachycardia at 106 bpm with PACs. Was improved with IV fluids. Upon evaluation in situ, patient feels better with IV fluids but still weak with intermittent dry cough. Denies any chills, congestion, chest pain. Palpitations have resolved. No nausea, vomiting or abdominal pain. No appetite change. No dysuria, diarrhea or constipation. Denies any known tick bites or rash but does have dogs who sleep in her bed. Admission Exam Per Admitting Provider General Appearance:WD/WN, vitals as above, NAD, sitting up in bed, pleasant, conversing easily Head: normocephalic, atraumatic Eyes:normal inspection, PERRL, conjunctivae normal, anicteric sclerae ENT: external ear and nose normal, oropharynx normal Neck: normal visual inspection, trachea midline, no thyromegaly Respiratory:decreased breath sounds bilaterally. No wheeze, rales, rhonchi. No accessory muscle use Cardiovascular: tachycardic rate, regular rhythm, no murmur, normal peripheral pulses, no BLE edema. Vessels: no JVD Chest: normal inspection of chest Abdomen/GI: normal bowel sounds, soft, nontender, no hepatosplenomegaly Extremities/Musculoskeletal: no cyanosis or clubbing, extremities motor strength 5/5 Neurologic: PERRL, EOMI, accommodation nl, no face palsy, no dysarthria, CN's II-XI intact bilaterally and moves all extremities Psychiatric:A+Ox3, euthymic affect Skin: no rashes, normal color, warm/dry Principal Diagnosis Likely Lyme disease Likely atypical pneumonia Discharge Exam GENERAL: Alert and oriented x3. NAD, on 3L NC O2. HEENT: No pallor, no icterus. Pupils equal, round and reactive to light. Oral mucosa moist. NECK: No JVD, no neck masses. HEART: S1 and S2 heard. Regular rate and rhythm. No murmur, no gallop. RESPIRATORY SYSTEM: Normal AP diameter. No accessory muscle use. No wheezing, no crackles. ABDOMEN: Soft, bowel sounds present, nontender, no distention. CENTRAL NERVOUS SYSTEM: No facial droop. Speech is clear. Obeys simple commands. Moves extremities. EXTREMITIES: No edema, no erythema seen. Discharge Data Allergies Allergy/AdvReac Type Severity Reaction Status Date / Time Penicillins Allergy Intermediate Hives Verified 03/05/22 16:55 Consultations 03/05/22 14:58 Consult Cardiology Routine Ordered Studies 03/05/22 17:07 CT chest diagnostic wo con Routine Hospital Course (1) Sepsis: Plan 61-year-old lady with PMH of HTN, HLD, GERD presented 03/05 to the ED with palpitation. Patient reports feeling sick since last 4 days with temperature [T-max of 104F]/sweating/weakness with minimal exertion/palpitation. In triage, patient was found to be hypotensive at 70/40 and tachycardic in the 170s, reported to be in irregular narrow complex tachycardia. By the time EKG was performed, rhythm converted to sinus tachycardia at 106 bpm with PACs. Patient reported improvement in symptoms with IV fluid resuscitation in the ED. Patient denied any known tick bites or rash but does have dogs to sleep in her bed. She is being managed for the following: Severe Sepsis POA: Elevated respiratory rate and pulse rate at presentation, temperature 35.9C at presentation. Likely Lyme disease versus atypical pneumonia. Likely Lyme disease Likely Atypical pneumonia Patient presented with feeling of generalized illness for 4 days associated with tachycardia and fever at presentation. Patient was found to be hypotensive. Patient with improvement in her symptoms with IV fluid resuscitation in the ED. Admitting CXR with suspicion of infiltrate at the right costophrenic angle and suspicion of small left pleural effusion. Admitting CT chest: Moderate sized bilateral pleural effusion and right basilar atelectasis. Follow-up CXR on next day of arrival with cardiomegaly with pulmonary edema and layering pleural effusion with bibasilar opacities suggestive of atelectasis versus pneumonitis Lyme titer positive pending confirmatory test, other serology either negative or pending, continue to follow. Respiratory biofire negative. Patient started on Rocephin and doxycycline 03/05. Changed to p.o. antibiotics upon discharge. Patient has been afebrile, blood pressure and heart rate has improved, patient reports regaining her strength, patient reports some cough with mucus which is improving. Patient would like to go home. Patient to follow-up with primary care office for final results on her serology test and blood culture reports. Patient made aware. Patient will require two-step test prior to discharge and necessary arrangements if she is needing oxygen. Tachycardia Reported narrow complex tachycardia on monitor in triage in 170s that converted to sinus tach by time of ECG Likely secondary to acute illness (see above) Continue to monitor on telemetry, 03/06 echo with EF of greater than 70% and mild concentric LVH. Troponin elevation HS troponin 17 --> 14 in setting of tachy-arrhythmia. No acute chest pain or ST elevation HTN Resume home meds. HLD Continue statin DVT Ppx: SQ heparin Code status: FULL Dispo: PCU/tele Patient being discharged home with following instruction at the point of discharge: Follow-up with your primary care physician within a week time. While in hospital, you had signs and symptoms of infection, your Lyme titer is borderline positive pending final confirmatory test, you are being discharged on antibiotics to cover for possible pneumonia and possible Lyme disease. You need to discuss your final results on Lyme test/other serology tests and blood culture with your primary care physician within a week time as discussed at the bedside to see if your antibiotics needs to be changes. You are being discharged on antibiotic, probiotics will be added. Get your blood work CBC and CMP done in a week time. Call your PCP office to schedule the test. Take your medications as prescribed. Total Time Total Time Spent Total Time Spent (In Minutes): 35 Discharge Plan Discharge Items Patient Disposition: Home - Self-Care Reason For Visit: TACHYCARDIA,LYME DISEASE,PNA Discharge Diagnosis: Likely Lyme disease Likely atypical pneumonia Activity: Resume your previous activity Non-emergency contact: Primary Care Provider Call non-emergency contact if: you have any medication questions, your symptoms worsen and your temperature is above 101 Follow-up/Referrals: Jessica Abdullahi, DO [Primary Care Provider] - Diet: Regular Addtl Attending Provider Instructions: Follow-up with your primary care physician within a week time. While in hospital, you had signs and symptoms of infection, your Lyme titer is borderline positive pending final confirmatory test, you are being discharged on antibiotics to cover for possible pneumonia and possible Lyme disease. You need to discuss your final results on Lyme test/other serology tests and blood culture with your primary care physician within a week time as discussed at the bedside to see if your antibiotics needs to be changes. You are being discharged on antibiotic, probiotics will be added. Get your blood work CBC and CMP done in a week time. Call your PCP office to schedule the test. Take your medications as prescribed. Pending Studies at Discharge: Yes (Confirmatory serology test and blood culture final results) Stand-Alone Forms: My [facility] [id number], Smoking Cessation Medications and DC Order Prescriptions: New doxycycline hyclate 100 mg Capsule 100 mg PO BID 10 Days Qty: 20 0RF benzonatate 100 mg Capsule 100 mg PO TID PRN (Reason: cough) 5 Days Qty: 15 0RF guaifenesin [Mucinex] 600 mg Tablet Extended Release 12hr 600 mg PO Q12 5 Days Qty: 10 0RF cefdinir 300 mg capsule 300 mg PO BID 5 Days Qty: 10 0RF Probiotic 3 billion cell capsule 3,000 mmu cells PO DAILY 10 Days Qty: 10 0RF Rx Instructions: administer with a meal Continued multivitamin Tablet 1 tab PO DAILY atorvastatin 20 mg tablet 20 mg PO DAILY losartan 25 mg tablet 25 mg PO DAILY hydrochlorothiazide 12.5 mg capsule 12.5 mg PO DAILY Discharge Orders: Discharge Order (Routine); Ordered 03/07/22 Ordered By: Stoney Stewart Admission Data Admit Date/Time: 03/05/22 14:48 Attending Provider: Stoney Stewart Admit Provider: Chicho Rose Primary Care Provider: Jessica Abdullahi Other Providers: Bonilla Alonso
[2022-03-08 02:33] LABS: 18KDIGG Band NON-REACTIVE; 23KDIGG Band NON-REACTIVE; 23KDIGM Band NON-REACTIVE; 28KDIGG Band NON-REACTIVE; 30KDIGG Band NON-REACTIVE; 39KDIGG Band REACTIVE; 39KDIGM Band REACTIVE; 41KDIGG Band NON-REACTIVE; 41KDIGM Band REACTIVE; 45KDIGG Band REACTIVE; 58KDIGG Band REACTIVE; 66KDIGG Band REACTIVE; 93KDIGG Band NON-REACTIVE; Lyme Antibodies, WB IgG NEGATIVE (NEGATIVE); Lyme Antibodies, WB IgM POSITIVE (NEGATIVE)
== END 2022-03-07 14:57 | disposition home or self-care (01) | DRG 871 ==
LOC: ED 11:49 → EDINP 14:48 → SUATTDRO 14:48 → 2S 18:53